=== PATIENT | male | born 1960 | race Caucasian/White ===

== ENCOUNTER → 2017-05-03 | Outpatient (CLI) | payer BC ==
[~2017-05-03] MED LIST: ACETAMINOPHEN W1 TA6 PO; ALTACE 5MG5 MG PO; ASPIRIN E.C. 8181 MG PO; B-121000 MCG PO; BREO IH; CLARINEX 5MG5 MG PO; CLARITIN 1010 MG/TAB PO; COLCRYS0.6 MG PO; FLEXERIL10 MG PO; FLONASEALLERGY NS; LORTAB 5/500 501 TAB PO; MOTRIN 200200 MG/TAB PO; MUCINEX D1 TER PO; MULTI VITAMINS1 TAB PO; PROAIR HFA0.09 MG/AC IH; SINGULAIR 110 MG/TAB PO; TOPROL XL 25MG25 MG PO; TYLENOL PM EXTR1 TA1 PO; ULTRAM 50MG TAB50 MG PO; ZYLOPRIM 300MG300 MG PO
== END ==
LOC: ZCOL.LAB 16:45
DX: R00.2 Palpitations (principal); R42 Dizziness and giddiness; R06.00 Dyspnea, unspecified

== ENCOUNTER → 2017-05-07 | Outpatient (CLI) | payer BC | LOC: COL.VAS 08:50 | DX: I44.7 Left bundle-branch block, unspecified (principal); I08.2 Rheumatic disorders of both aortic and tricuspid valves ==

== ENCOUNTER 2017-05-15 08:30 | Day surgery (SDC) | payer BC ==
[~2017-05-15] VITALS: Ht 183 cm; Wt 95.0 kg
[2017-05-15] VITALS (9 sets, daily range): BP systolic 109–150; BP diastolic 72–89; PULSE 64–82; TEMP 98.6
[~2017-05-15 08:30] MED LIST changes: -ALTACE 5MG5 MG PO; -ASPIRIN E.C. 8181 MG PO; -B-121000 MCG PO; -BREO IH; -CLARITIN 1010 MG/TAB PO; -COLCRYS0.6 MG PO; -FLONASEALLERGY NS; -MOTRIN 200200 MG/TAB PO; -MUCINEX D1 TER PO; -MULTI VITAMINS1 TAB PO; -PROAIR HFA0.09 MG/AC IH; -SINGULAIR 110 MG/TAB PO; -TOPROL XL 25MG25 MG PO; -TYLENOL PM EXTR1 TA1 PO; -ULTRAM 50MG TAB50 MG PO; -ZYLOPRIM 300MG300 MG PO
[2017-05-15 09:16] LABS: HEMATOCRIT 44.5 % (42.0-52.0); MEAN CELL VOLUME 89 fl (80.0-100.0); MEAN CORPUSCULAR HEMOGLOBIN 30 pg (27.0-31.0); MEAN CORPUSCULAR HGB CONC 34 g/dl (33.0-37.0); MEAN PLATELET VOLUME 10.4 fl (7.4-10.4); PLATELET COUNT 380 K/mm3 (130-400); RED BLOOD COUNT 4.98 M/mm3 (4.20-5.60); REDCELL DISTRIBUTION WIDTH-CV 14.7 % (11.5-14.5); WHITE BLOOD COUNT 7.3 K/mm3 (4.8-10.8)
[2017-05-15] MEDS ORDERED: ZYLOPRIM 300MG300 MG PO (09:23)
[2017-05-15] MEDS ORDERED: BREO IH (09:24)
[2017-05-15] MEDS ORDERED: ASPIRIN E.C. 8181 MG PO (09:24)
[2017-05-15] MEDS ORDERED: COLCRYS0.6 MG PO (09:25)
[2017-05-15 09:27] LABS: CALCIUM 9.5 mg/dL (8.4-10.2); CREATININE, serum 0.76 mg/dL (0.66-1.25); POTASSIUM 4.3 mmol/L (3.4-5.0)
[2017-05-15] MEDS ORDERED: FLONASEALLERGY NS (09:28)
[2017-05-15] MEDS ORDERED: TYLENOL PM EXTR1 TA1 PO (09:28)
[2017-05-15] MEDS ORDERED: MOTRIN 200200 MG/TAB PO (09:29)
[2017-05-15] MEDS ORDERED: CLARITIN 1010 MG/TAB PO (09:29)
[2017-05-15] MEDS ORDERED: PROAIR HFA0.09 MG/AC IH (09:30)
[2017-05-15] MEDS ORDERED: SINGULAIR 110 MG/TAB PO (09:30)
[2017-05-15] MEDS ORDERED: MULTI VITAMINS1 TAB PO (09:30)
[2017-05-15 09:31] LABS: PROTHROMBIN TIME 10.7 SECONDS (9.7-12.8)
[2017-05-15] MEDS ORDERED: MUCINEX D1 TER PO (09:31)
[2017-05-15] MEDS ORDERED: B-121000 MCG PO (09:31)
[2017-05-15] MEDS ORDERED: TOPROL XL 25MG25 MG PO ×2 (09:32→13:31)
[2017-05-15] MEDS ORDERED: ALTACE 5MG5 MG PO (13:29)
[2017-05-15] MEDS ORDERED: ULTRAM 50MG TAB50 MG PO (13:30)
== END 2017-05-15 14:50 | disposition home or self-care (01) ==
LOC: COL.CAR 08:30
PROVIDERS: Internal Medicine Cardiovascular Disease
DX: I42.9 Cardiomyopathy, unspecified (principal); I44.7 Left bundle-branch block, unspecified; R06.02 Shortness of breath; R00.2 Palpitations; I35.1 Nonrheumatic aortic (valve) insufficiency; J45.909 Unspecified asthma, uncomplicated; K57.90 Diverticulosis of intestine, part unspecified, without perforation or abscess without bleeding; M10.9 Gout, unspecified; G56.22 Lesion of ulnar nerve, left upper limb; I10 Essential (primary) hypertension
CPT/HCPCS: C1725; C1760; C1769; C1894; G9654; J2250; J2704; J3010; Q9967

== ENCOUNTER → 2017-07-05 | Outpatient (REF) ==
[~2017-07-05] MED LIST changes: +ALTACE 5MG5 MG PO; +ASPIRIN E.C. 8181 MG PO; +B-121000 MCG PO; +BREO IH; +CLARITIN 1010 MG/TAB PO; +COLCRYS0.6 MG PO; +FLONASEALLERGY NS; +MOTRIN 200200 MG/TAB PO; +MUCINEX D1 TER PO; +MULTI VITAMINS1 TAB PO; +PROAIR HFA0.09 MG/AC IH; +SINGULAIR 110 MG/TAB PO; +TOPROL XL 25MG25 MG PO; +TYLENOL PM EXTR1 TA1 PO; +ULTRAM 50MG TAB50 MG PO; +ZYLOPRIM 300MG300 MG PO
== END ==
LOC: WSOH 09:13
DX: Z00.00 Encounter for general adult medical examination without abnormal findings (principal)

== ENCOUNTER → 2017-10-27 | Outpatient (CLI) | payer BC ==
[2017-10-27 10:48] LABS: INR 1.4 (0.8-3.0); PROTHROMBIN TIME 16.5 SECONDS (9.7-12.8)
== END ==
LOC: COL.LAB 10:21
DX: Z95.3 Presence of xenogenic heart valve (principal)

== ENCOUNTER 2017-11-10 17:37 | Emergency (ER) | payer BC ==
[~2017-11-10] VITALS: Ht 180.3 cm; Wt 90.9 kg
[2017-11-10 18:02] LABS: HEMOGLOBIN 11.5 g/dl (13.5-18.0); INR 1.7 (0.8-3.0); MEAN CELL VOLUME 93 fl (80.0-100.0); MEAN CORPUSCULAR HEMOGLOBIN 29 pg (27.0-31.0); MEAN CORPUSCULAR HGB CONC 31 g/dl (33.0-37.0); MEAN PLATELET VOLUME 9.4 fl (7.4-10.4); PLATELET COUNT 685 K/mm3 (130-400); RED BLOOD COUNT 3.97 M/mm3 (4.20-5.60); REDCELL DISTRIBUTION WIDTH-CV 15.4 % (11.5-14.5)
[2017-11-10 18:03] LABS: HEMATOCRIT 36.8 % (42.0-52.0)
[2017-11-10 18:05] LABS: PARTIAL THROMBOPLASTIN TIME 22.6 SECONDS (26.0-37.0)
[2017-11-10 18:09] LABS: ALBUMIN 4.9 gm/dL (3.5-5.0); BILIRUBIN,TOTAL 0.4 mg/dL (0.0-1.0); CALCIUM 10.3 mg/dL (8.4-10.2); CREATININE, serum 1.02 mg/dL (0.66-1.25); POTASSIUM 4.2 mmol/L (3.4-5.0); TOTAL PROTEIN 8.2 gm/dL (6.4-8.2)
[2017-11-10 18:21] LABS: BAND 1 % (0-10); BASOPHIL 1 % (0-2); EOSINOPHIL 17 % (0-4); HYPOCHROMIA 2+; LYMPHOCYTE 27 % (20.0-51.0); NEUTROPHILS 49 % (42.0-75.2); PLATELET ESTIMATE INCREASED (NORMAL)
[2017-11-10 18:22] LABS: TROPONIN-I 0.043 ng/mL (0.000-0.034)
[2017-11-10 20:40] VITALS: BP 92/84; PULSE 133
== END 2017-11-10 20:45 | disposition short-term general hospital (02) ==
LOC: COL.ER 17:37
PROVIDERS: Emergency Medicine
DX: I48.91 Unspecified atrial fibrillation (principal); I50.9 Heart failure, unspecified; Z95.5 Presence of coronary angioplasty implant and graft; Z95.2 Presence of prosthetic heart valve; Z79.82 Long term (current) use of aspirin
CPT/HCPCS: J7030; J7050

== ENCOUNTER 2018-01-21 13:12 | Outpatient (RCR) | payer BC | END 2018-02-07 | disposition still patient (30) | LOC: COL.CR | DX: Z48.812 Encounter for surgical aftercare following surgery on the circulatory system (principal); Z95.2 Presence of prosthetic heart valve ==

== ENCOUNTER → 2020-09-01 | Outpatient (CLI) | payer BC | LOC: ZCOL.LAB 20:08 | DX: Z01.818 Encounter for other preprocedural examination (principal); Z20.828 Contact with and (suspected) exposure to other viral communicable diseases ==

== ENCOUNTER → 2020-10-05 | Outpatient (CLI) | payer BC | LOC: COL.RAD 12:33 | DX: H34.9 Unspecified retinal vascular occlusion (principal) | CPT/HCPCS: Q9967 ==

== ENCOUNTER → 2021-05-09 | Outpatient (CLI) | payer BC ==
[~2021-05-09] MED LIST changes: +PERCOCET 325 MG1 TA3 PO
== END ==
LOC: ZCOL.LAB 16:09
DX: K61.0 Anal abscess (principal)

== ENCOUNTER 2022-04-27 11:14 | Emergency (ER) | payer OTHER, BC ==
[~2022-04-27] VITALS: Ht 180.3 cm; Wt 96.4 kg
[2022-04-27 11:40] VITALS: TEMP 98.8
[2022-04-27 12:52] LABS: BASO % 0.2 % (0.0-2.0); EOS % 0.2 % (0.0-4.0); GRAN % 75.7 % (42.2-75.2); HEMATOCRIT 41.6 % (42.0-52.0); HEMOGLOBIN 13.9 g/dl (13.5-18.0); LYMPH # 1.1 K/mm3 (1.2-3.4); MEAN CELL VOLUME 92 fl (80.0-100.0); MEAN CORPUSCULAR HEMOGLOBIN 31 pg (27-31); MEAN CORPUSCULAR HGB CONC 33 g/dl (33.0-37.0); MEAN PLATELET VOLUME 10.1 fl (7.4-10.4); MONO # 0.4 K/mm3 (0.1-0.6); MONO % 6.6 % (1.7-9.3); PLATELET COUNT 269 K/mm3 (130-400); RED BLOOD COUNT 4.52 M/mm3 (4.20-5.60); REDCELL DISTRIBUTION WIDTH-CV 15.7 % (11.5-14.5)
[2022-04-27 12:58] LABS: INR 1.1 (0.8-3.0); PROTHROMBIN TIME 12.1 SECONDS (9.7-12.8)
[2022-04-27 13:01] LABS: PARTIAL THROMBOPLASTIN TIME 34.1 SECONDS (26.0-37.0)
[2022-04-27 13:12] LABS: ALANINE AMINOTRANSFERASE 14 U/L (0-55); ALBUMIN 3.8 gm/dL (3.5-5.0); ALKALINE PHOSPHATASE 41 U/L (40-150); ANION GAP 10 mmol/L (7-16); AST,SGOT 18 U/L (5-34); BILIRUBIN,TOTAL 0.4 mg/dL (0.2-1.2); BLOOD UREA NITROGEN 11 mg/dL (8-26); CALCIUM 8.5 mg/dL (8.4-10.2); CARBON DIOXIDE 23 mmol/L (22-29); CHLORIDE 108 mmol/L (98-107); CREATININE, serum 0.73 mg/dL (0.72-1.25); GLUCOSE 114 mg/dL (70-99); POTASSIUM 3.9 mmol/L (3.5-4.5); SODIUM 141 mmol/L (136-145); TOTAL PROTEIN 6.5 gm/dL (6.2-8.1)
[2022-04-27 13:18] LABS: TROPONIN-I < 0.010 ng/mL (0.00-0.033)
[2022-04-27 14:23] VITALS: BP 117/83; PULSE 60
== END 2022-04-27 14:35 | disposition home or self-care (01) ==
LOC: COL.ER 11:14
PROVIDERS: Emergency Medicine
DX: U07.1 COVID-19 (principal); S06.9X9A Unspecified intracranial injury with loss of consciousness of unspecified duration, initial encounter; S00.03XA Contusion of scalp, initial encounter; R55 Syncope and collapse; Z79.01 Long term (current) use of anticoagulants; Z95.4 Presence of other heart-valve replacement; W18.30XA Fall on same level, unspecified, initial encounter; Y92.009 Unspecified place in unspecified non-institutional (private) residence as the place of occurrence of the external cause
CPT/HCPCS: J7050; Q0222

== ENCOUNTER 2022-06-29 11:53 | Day surgery (SDC) | payer BC ==
[~2022-06-29] VITALS: Ht 180.3 cm; Wt 96.3 kg
[2022-06-29] MEDS ORDERED: XARELTO20 MG PO (12:36)
[2022-06-29] MEDS ORDERED: CRESTOR40 MG PO (12:36)
[2022-06-29] MEDS ORDERED: REDITREX 225 MG/1 ML SQ (12:38)
[2022-06-29] MEDS ORDERED: HUMIRA PEN40 MG/0.4 SQ (12:38)
[2022-06-29] MEDS ORDERED: SYNTHROID0.05 MG/TA PO (12:39)
[2022-06-29] MEDS ORDERED: ENTRESTO 24 MG1 EACH PO (12:39)
[2022-06-29] MEDS ORDERED: JARDIANCE10 (12:40)
[2022-06-29] MEDS ORDERED: ALDACTONE 25MG25 M1 PO (12:41)
[2022-06-29] MEDS ORDERED: DULERA1 ARO IH (12:42)
[2022-06-29] MEDS ORDERED: PREDNISONE1 MG PO (12:42)
[2022-06-29] MEDS ORDERED: PERCOCET 325 MG1 TA2 PO ×2 (12:43→14:32)
[2022-06-29] MEDS ORDERED: RHINOCORT0.032 MG/1 NS (12:44)
[2022-06-29 13:05] VITALS: BP 103/72; PULSE 62; TEMP 98.2
[2022-06-29 14:25] VITALS: BP 112/69; PULSE 69; TEMP 97.8
--- NOTE | 2022-06-29 14:25 | NUR ---
PT TO BAY 2 PER CART FROM [place]. REPORT RECEIVED. VS OBTAINED. CALL LIGHT WITHIN REACH. DENIES ANY NEEDS AT THIS TIME.
[2022-06-29 14:40] VITALS: BP 113/78; PULSE 68
--- NOTE | 2022-06-29 14:40 | NUR ---
PT TOLERATING PEPSI. DENIES ANY OTHER NEEDS.
[2022-06-29 14:55] VITALS: BP 111/70; PULSE 59
--- NOTE | 2022-06-29 15:30 | NUR ---
1500-IV DC'D AT THIS TIME. 1510-DISCHARGE EDUCATION COMPLETED WITH PT AND HIS . VERBALIZED UNDERSTANDING OF HOME AND FOLLOW UP CARE. ALL QUESTIONS ANSWERED. DISCHARGE PAPERWORK GIVEN TO PT. 1530-PT OFF UNIT PER WHEELCHAIR. PT DISCHARGED TO HOME WITH PER PERSONAL VEHICLE.
== END 2022-06-29 15:30 | disposition home or self-care (01) ==
LOC: SDCO 11:53
DX: K64.1 Second degree hemorrhoids (principal); Z86.16 Personal history of COVID-19
CPT/HCPCS: J2704; J7030

== ENCOUNTER → 2023-01-02 | Outpatient (REF) | payer BC ==
[~2023-01-02] MED LIST changes: +ALDACTONE 25MG25 M1 PO; +CRESTOR40 MG PO; +DULERA1 ARO IH; +ENTRESTO 24 MG1 EACH PO; +HUMIRA PEN40 MG/0.4 SQ; +JARDIANCE10; +PERCOCET 325 MG1 TA2 PO; +PREDNISONE1 MG PO; +REDITREX 225 MG/1 ML SQ; +RHINOCORT0.032 MG/1 NS; +SYNTHROID0.05 MG/TA PO; +XARELTO20 MG PO
== END ==
LOC: ZCOL.LAB 15:52
DX: R61 Generalized hyperhidrosis (principal)